=== PATIENT | female | born 1990 | race Hispanic/Latino ===

== ENCOUNTER 2018-01-10 16:13 | Emergency (ER) | payer OTHER, MEDICAID ==
[2018-01-10] MEDS ORDERED: Sodium Chloride 0.9% 1,000 ML IV STA (16:34)
[2018-01-10 16:56] LABS: BASO % 0.5 % (0.0-2.0); EOS # 0.1 K/uL (0.0-0.7); HEMOGLOBIN 13.3 g/dL (12.0-16.0); LYMPH # 1.2 K/uL (1.0-4.3); LYMPH % 14.9 % (20.0-40.0); MEAN CORPUSCULAR HEMOGLOBIN 31.9 pg (27.0-31.0); MEAN CORPUSCULAR HGB CONC 33.3 g/dL (33.0-37.0); MEAN PLATELET VOLUME 8.4 fl (7.2-11.7); MONO # 0.4 K/uL (0.0-0.8); MONO % 5.6 % (0.0-10.0); NEUT # 6.2 K/uL (1.8-7.0); RBC 4.15 Mil/uL (3.80-5.20); RED CELL DISTRIBUTION WIDTH 13.5 % (11.5-14.5)
[2018-01-10] MEDS ORDERED: Iohexol 240 (50 ml) PO ONE (16:58)
[2018-01-10 17:01] LABS: SQUAMOUS EPITHIAL 2 /hpf (0-5); URINE BILIRUBIN NEGATIVE (NEGATIVE); URINE BLOOD NEGATIVE (NEGATIVE); URINE CLARITY SLIGHTY-CLOUDY (Clear); URINE COLOR YELLOW (YELLOW); URINE GLUCOSE (UA) NEG (Normal); URINE LEUKOCYTE ESTERASE NEG Leu/uL (Negative); URINE PROTEIN 30 mg/dL (NEGATIVE); URINE UROBILINOGEN 0.2-1.0 mg/dL (0.2-1.0)
--- NOTE | 2018-01-10 17:01 | ED PDOC ---
HPI: Abdomen Time Seen by Provider: 01/10/18 16:25 Chief Complaint (Nursing): Abdominal Pain History Per: Patient Additional Complaint(s): Pt. states at 1100 today she had an abrupt onset of RLQ abdominal pain which radiates to her lower back. States that pain began 15 mins after eating a cured meat. States she had 1 episode of watery stool afterwards which worsened pain. States she's felt feverish but has not checked her temperature. Took Advil without relief. Further reports pain is worsened with ambulation. Also reports feeling nauseous but has not had any vomiting. Denies dysuria, hematuria, incontinence, flank pain, trauma, previous abdominal surgeries, melena, hematochezia, BRBPR, hematemesis. Last Menstral Period: "last week" Past Medical History Reviewed: Historical Data, Nursing Documentation, Vital Signs Vital Signs: Last Vital Signs Temp 97.9 F 01/10/18 16:15 Pulse 81 01/10/18 16:15 Resp 20 01/10/18 16:15 BP 120/71 01/10/18 16:15 Pulse Ox 97 01/10/18 16:15 - Surgical History Surgical History: No Surg Hx - Family History Family History: States: No Known Family Hx - Allergies Allergies/Adverse Reactions: Allergies Allergy/AdvReac Type Severity Reaction Status Date / Time No Known Allergies Allergy Verified 01/10/18 16:15 Review of Systems ROS Statement: Except As Marked, All Systems Reviewed And Found Negative Gastrointestinal: Positive for: Nausea, Abdominal Pain Physical Exam - Physical Exam Appears: Positive for: Well, Non-toxic, In Acute Distress (mild painful distress) Skin: Positive for: Normal Color, Warm. Negative for: Rash Eye Exam: Positive for: Normal appearance, EOMI, PERRL ENT: Positive for: Normal ENT Inspection Neck: Positive for: Normal, Painless ROM Cardiovascular/Chest: Positive for: Regular Rate, Rhythm Respiratory: Positive for: Normal Breath Sounds. Negative for: Respiratory Distress Gastrointestinal/Abdominal: Positive for: Normal Exam, Soft, Tenderness (moderate RLQ tenderness). Negative for: Guarding, Rebound Back: Positive for: Normal Inspection. Negative for: L CVA Tenderness, R CVA Tenderness Neurologic/Psych: Positive for: Alert (x3), Oriented. Negative for: Aphasia, Facial Droop - Laboratory Results Result Diagrams: 01/10/18 16:45 01/10/18 16:45 Urine POC: Negative Urine dip results: Negative for: Leukocyte Esterase, Blood, Nitrate, Ketones, Glucose, Bilirubin, Protein - ECG O2 Sat by Pulse Oximetry: 97 - Progress ED Course And Treament: Labs, CT abd/pelvis w/ PO and IV contrast (according to CT protocol), Morphine 2mg IV, zofran 4mg IV, IV NS hydration ordered. Case d/w CARISSA Holloway, who requests Dr. Tovar for surgery if needed. 1729 On re-evaluation, pt. AAOx3. Reports pain has improved. Pt. in no distress. 1957 CT abd/pelvis: no acute intra-abdominal abnormality. Incidental subcentimeter cyst in R lobe of liver. Abundant amount of fecal material on R side of colon. On final re-evaluation, pt. reports complete relief of pain. Pt. in no distress. Informed of results and advised to f/u with Dr. Archuleta for further evaluation but is to return to ED immediately if symptoms worsen. Verbalized understanding of necessary f/u and of results. Disposition - Clinical Impression Clinical Impression: Constipation, Liver cyst - Patient ED Disposition Is Patient to be Admitted: No - Disposition Referrals: Zhen Archuleta MD, PhD [Staff Provider] - [facility] [Outside] Disposition: Routine/Home Disposition Time: 20:01 Condition: STABLE Additional Instructions: RETURN TO ED IMMEDIATELY IF SYMPTOMS WORSEN. PATY HANLEY, thank you for letting us take care of you today. Your provider was Eran Moreira MD and you were treated for ABD PAIN. The emergency medical care you received today was directed at your acute symptoms. If you were prescribed any medication, please fill it and take as directed. It may take several days for your symptoms to resolve. Return to the Emergency Department if your symptoms worsen, do not improve, or if you have any other problems. Please contact your doctor or call one of the physicians/clinics you have been referred to that are listed on the Patient Visit Information form that is included in your discharge packet. Bring any paperwork you were given at discharge with you along with any medications you are taking to your follow up visit. Our treatment cannot replace ongoing medical care by a primary care provider outside of the emergency department. Thank you for allowing the [facility] team to be part of your care today. If you had an X-Ray or CT scan: A Radiologist will review the ED reading if any change in treatment is needed we will contact you. If you had a blood, urine, or wound culture: It will take several days for the results, if any change in treatment is needed we will contact you. If you had an STI test: It will take 48 hours for the results. Please call after 1 week if you have not heard back. Instructions: Constipation, Adult (DC), Cysts in the Liver Forms: [employer] ([place]i) Print Language: BURKINAN
[2018-01-10 17:04] LABS: INR 0.9; PROTHROMBIN TIME 10.4 Seconds (9.8-13.1)
[2018-01-10 17:04] LABS: ALB/GLOB RATIO 1.3 (1.0-2.1); ALBUMIN 4.3 g/dL (3.5-5.0); BLOOD UREA NITROGEN 15 mg/dl (7-17); CALCIUM 8.8 mg/dL (8.4-10.2); GFR NON-AFRICAN AMERICAN > 60
[2018-01-10 17:07] LABS: PARTIAL THROMBOPLASTIN TIME 25.1 Seconds (25.6-37.1)
[2018-01-10 17:14] LABS: ALT/SGPT 22 U/L (9-52); AST/SGOT 31 U/L (14-36)
[2018-01-10] MEDS ORDERED: Sodium Chloride 0.9% 50 ML IV ONE (18:27)
[2018-01-10] MEDS ORDERED: Iohexol 300 100 ML IJ ONE (18:27)
[2018-01-10 19:40] VITALS: BP 110/68; PULSE 76; RESP 16; TEMP 98
[2018-01-10 20:00] VITALS: O2SAT 97
--- NOTE | 2018-01-11 09:33 | CT ---
Date of service: 01/10/2018 PROCEDURE: CT Abdomen and Pelvis with contrast HISTORY: RLQ abd pain COMPARISON: None. TECHNIQUE: Contrast dose: 90 milliliters Radiation dose: Total exam DLP = 394.36 mGy-cm. This CT exam was performed using one or more of the following dose reduction techniques: Automated exposure control, adjustment of the mA and/or kV according to patient size, and/or use of iterative reconstruction technique. FINDINGS: LOWER THORAX: Unremarkable. LIVER: Liver slightly fatty infiltrated. There is a sub centimeter hypodense probable liver cyst in the subcapsular region of the lateral right liver lobe on axial image 14 series 2. No solid liver lesions or intrahepatic ductal dilatation is noted. GALLBLADDER AND BILE DUCTS: Unremarkable. PANCREAS: Unremarkable. No gross lesion or ductal dilatation. SPLEEN: Unremarkable. ADRENALS: Unremarkable. No mass. KIDNEYS AND URETERS: Unremarkable. No hydronephrosis. No solid mass. VASCULATURE: Unremarkable. No aortic aneurysm. No aortic atherosclerotic calcification or mural plaque present. BOWEL: Unremarkable. No obstruction. No gross mural thickening. No pericolonic inflammatory change. Visualized stomach is unremarkable as well as the distal esophagus. APPENDIX: Appendix is well identified. Small amount of fluid is seen in the appendix without significant appendiceal dilatation, wall thickening, or periappendiceal inflammatory changes to suggest appendicitis. PERITONEUM: Unremarkable. No free fluid. No free air. LYMPH NODES: Unremarkable. No enlarged lymph nodes. BLADDER: Unremarkable. REPRODUCTIVE: Unremarkable. BONES: No acute fracture. OTHER FINDINGS: None. IMPRESSION: No appreciable acute inflammatory process in the abdomen or pelvis. No CT scan evidence of appendicitis on the present examination. Moderate residual fecal material noted within the right colon and lesser degree elsewhere in the colon which should be further correlated clinically. This may suggest constipation. This agrees with preliminary report.
== END 2018-01-10 20:17 | disposition home or self-care (01) ==
LOC: H.ER 16:13
DX: K59.00 Constipation, unspecified (principal); K76.89 Other specified diseases of liver
CPT/HCPCS: 74177; 80053; 81003; 81025; 83690; 85025; 85610; 85730; 86850; 86900; 87040; 96374; 96375; 99283; J2270; J2405; J7030; Q9966; Q9967